=== PATIENT | female | born 1995 | race American Indian/Alaskan Native ===

== ENCOUNTER 2019-05-19 23:25 | Emergency (ER) | payer OTHER ==
[2019-05-20 00:40] LABS: Basophils % (Auto) 0.2 % (0.0-1.8); Eosinophils # (Auto) 0.1 K/mm3 (0.0-0.4); Eosinophils % (Auto) 1.4 % (0.0-4.3); Hematocrit 33.2 % (30.3-42.9); Hemoglobin 10.9 gm/dl (10.1-14.3); Lymphocytes # (Auto) 1.9 K/mm3 (1.2-5.4); Lymphocytes % (Auto) 24.7 % (13.4-35.0); Mean Corpuscular HGB Conc 33 % (30-34); Mean Corpuscular Volume 73 fl (79-97); Monocytes # (Auto) 0.7 K/mm3 (0.0-0.8); Monocytes % (Auto) 8.5 % (0.0-7.3); Platelet Count 250 K/mm3 (140-440); Red Blood Count 4.54 M/mm3 (3.65-5.03); Red Cell Distribution Width 13.7 % (13.2-15.2)
[2019-05-20 01:03] LABS: Alanine Aminotransferase 17 units/L (7-56); Albumin 4.1 g/dL (3.9-5); BUN/Creatinine Ratio 12; Blood Urea Nitrogen 7 mg/dL (7-17); Calcium 9.2 mg/dL (8.4-10.2); Hemolysis Index 0
--- NOTE | 2019-05-20 01:38 | Emergency Department Report ---
ED General Adult HPI - General Chief complaint: Abdominal Pain Stated complaint: UTI,FATIGUE,LIGHT HEADED Time Seen by Provider: 05/20/19 01:34 Source: patient Mode of arrival: Ambulatory Limitations: No Limitations - History of Present Illness Initial comments: 23-year-old female with no past medical history presents with complaint of abdominal pain. Patient says abdominal tenderness or lower abdominal region. Patient had the pain since yesterday. He states he has yet to follow up with the [facility] during this . Patient states she believes she is around 15 weeks . Patient states she is concerned she may have a UTI but denies any dysuria. Patient states she's had vaginal discharge which is white. Patient denies any vaginal bleeding. Patient states she has no history of ectopic . - Related Data Previous Rx's Medication Instructions Recorded Last Taken Type Nitrofurantoin [place]/M-Cryst 100 mg PO Q12HR 7 Days #14 capsule 05/20/19 Unknown Rx [Macrobid CAP] Allergies Allergy/AdvReac Type Severity Reaction Status Date / Time No Known Allergies Allergy Unverified 05/19/19 23:41 ED Review of Systems ROS: Stated complaint: UTI,FATIGUE,LIGHT HEADED Other details as noted in HPI Constitutional: denies: chills, fever Eyes: denies: eye pain, eye discharge, vision change ENT: denies: ear pain, throat pain Respiratory: denies: cough, shortness of breath, wheezing Cardiovascular: denies: chest pain, palpitations Endocrine: no symptoms reported Gastrointestinal: denies: abdominal pain, nausea, diarrhea Genitourinary: denies: urgency, dysuria, discharge Musculoskeletal: denies: back pain, joint swelling, arthralgia Skin: denies: rash, lesions Neurological: denies: headache, weakness, paresthesias Psychiatric: denies: anxiety, depression Hematological/Lymphatic: denies: easy bleeding, easy bruising ED Past Medical Hx - Past Medical History Previous Medical History?: No - Surgical History Past Surgical History?: No - Social History Smoking Status: Never Smoker Substance Use Type: None - Medications Home Medications: Home Medications Medication Instructions Recorded Confirmed Last Taken Type Nitrofurantoin [place]/M-Cryst 100 mg PO Q12HR 7 Days #14 capsule 05/20/19 Unknown Rx [Macrobid CAP] ED Physical Exam - General Limitations: No Limitations General appearance: alert, in no apparent distress - Head Head exam: Present: atraumatic, normocephalic - Eye Eye exam: Present: normal appearance - ENT ENT exam: Present: mucous membranes moist - Neck Neck exam: Present: normal inspection - Respiratory Respiratory exam: Present: normal lung sounds bilaterally. Absent: respiratory distress - Cardiovascular Cardiovascular Exam: Present: regular rate, normal rhythm. Absent: systolic murmur, diastolic murmur, rubs, gallop - GI/Abdominal GI/Abdominal exam: Present: soft, tenderness (mild tenderness noted in suprapubic region), normal bowel sounds. Absent: guarding, rebound - Extremities Exam Extremities exam: Present: normal inspection - Back Exam Back exam: Present: normal inspection - Neurological Exam Neurological exam: Present: alert, oriented X3 - Psychiatric Psychiatric exam: Present: normal affect, normal mood - Skin Skin exam: Present: warm, dry, intact, normal color. Absent: rash ED Course Vital Signs 05/19/19 05/19/19 05/20/19 23:29 23:43 01:40 Temperature 98.4 F 98.4 F 98.6 F Pulse Rate 76 76 72 Respiratory 18 18 18 Rate Blood Pressure 125/73 125/73 Blood Pressure 120/73 [Left] O2 Sat by Pulse 99 99 100 Oximetry 05/20/19 05/20/19 01:45 02:01 Temperature Pulse Rate Respiratory Rate Blood Pressure 120/73 107/60 Blood Pressure [Left] O2 Sat by Pulse 100 100 Oximetry ED Medical Decision Making - Lab Data Result diagrams: 05/20/19 00:09 05/20/19 00:09 - Medical Decision Making Patient has Ultrasound which shows 14 week and 5 day . Patient noted to have the presence of a UTI and will be treated with Macrobid therapy as an outpatient. Patient given Tylenol therapy while in the ER. - Differential Diagnosis ectopic ; electrolyte abnormalities, anemia; dehydration Critical care attestation.: If time is entered above; I have spent that time in minutes in the direct care of this critically ill patient, excluding procedure time. ED Disposition Clinical Impression: Abdominal pain, , Urinary tract infection Disposition: TO HOME OR SELFCARE Is pt being admited?: No Does the pt Need Aspirin: No Condition: Stable Instructions: Abdominal Pain (ED) Prescriptions: Nitrofurantoin [place]/M-Cryst [Macrobid CAP] 100 mg PO Q12HR 7 Days #14 capsule Time of Disposition: 03:12 Print Language: [place]
--- NOTE | 2019-05-20 01:40 | Ultrasound Report ---
Transabdominal OB pelvic ultrasound INDICATION / CLINICAL INFORMATION: Abdominal pain. COMPARISON: None available. FINDINGS: There is a single intrauterine with an estimated sonographic gestational age of 14 weeks 5 days and [place] of 11/13/2019. Clinical dates are 17 weeks 1 day. The heart rate is 149 bpm. presentation is transverse with the head on the maternal left. Amniotic fluid volume is normal. The placenta is located anterolaterally on the left, is grade 0 and is low-lying. No anomalies are seen. The cervix measures 7.3 cm in length and the internal os is closed. Neit her ovary is seen. IMPRESSION: 1. Single viable 14 week 5 day intrauterine . 2. Low lying placenta. Signer Name: Edward Chow MD Signed: 05/20/2019 1:36 AM Workstation Name: [id number]
[2019-05-20] MEDS ORDERED: ACETAMINOPHEN 500 MG TAB PO ONE (01:43)
[2019-05-20 02:53] LABS: Bacteria,Urine 4+ /HPF (Negative); Bilirubin,Urine NEG (Negative); Blood,Urine NEG (Negative); Color,Urine Yellow (Yellow); Mucus,Urine FEW /HPF; Protein,Urine <15 mg/dL mg/dL (Negative); Urobilinogen,Urine < 2.0 mg/dL (<2.0)
[2019-05-20 03:26] VITALS: BP 106/63
== END 2019-05-20 03:32 | disposition home or self-care (01) ==
LOC: ED 23:25
DX: O23.42 Unspecified infection of urinary tract in pregnancy, second trimester (principal); Z79.899 Other long term (current) drug therapy; Z3A.14 14 weeks gestation of pregnancy
CPT/HCPCS: 36415; 76805; 80053; 81001; 84702; 85025

== ENCOUNTER 2019-07-07 15:42 | Emergency (ER) | payer OTHER ==
--- NOTE | 2019-07-07 17:01 | Event Note ---
ED Screening Note Date of service: 07/07/19 Time: 16:40 ED Screening Note: 24 y o [id number] female at 6 months gestation presents with complains of left wrist pain and bilateral finger pain Pt states she fainted while she was at home. cant recall what happened when she came to she saw some vomit she is unsure of what happened Left hand pain and swelling This initial assessment/diagnostic orders/clinical plan/treatment(s) is/are subject to change based on patients health status, clinical progression and re- assessment by fellow clinical providers in the ED. Further treatment and workup at subsequent clinical providers discretion. Patient/guardian urged not to elope from the ED as their condition may be serious if not clinically assessed and managed. Initial orders include: US xr wrist CT head?
--- NOTE | 2019-07-07 17:29 | Event Note ---
ED Screening Note Date of service: 07/07/19 Time: 16:03 ED Screening Note: This initial assessment/diagnostic orders/clinical plan/treatment(s) is/are subject to change based on patients health status, clinical progression and re- assessment by fellow clinical providers in the ED. Further treatment and workup at subsequent clinical providers discretion. Patient/guardian urged not to elope from the ED as their condition may be serious if not clinically assessed and managed. Initial orders include:
[2019-07-07 18:45] LABS: Basophils % (Auto) 0.3 % (0.0-1.8); Hematocrit 31.4 % (30.3-42.9); Hemoglobin 10.2 gm/dl (10.1-14.3); Lymphocytes # (Auto) 0.6 K/mm3 (1.2-5.4); Lymphocytes % (Auto) 4.3 % (13.4-35.0); Mean Corpuscular HGB Conc 32 % (30-34); Mean Corpuscular Volume 73 fl (79-97); Monocytes # (Auto) 0.8 K/mm3 (0.0-0.8); Monocytes % (Auto) 5.6 % (0.0-7.3); Platelet Count 235 K/mm3 (140-440); Red Blood Count 4.29 M/mm3 (3.65-5.03); Red Cell Distribution Width 13.7 % (13.2-15.2)
[2019-07-07 19:37] LABS: Alanine Aminotransferase 12 units/L (7-56); Albumin 3.5 g/dL (3.9-5); BUN/Creatinine Ratio 11; Blood Urea Nitrogen 8 mg/dL (7-17); Calcium 9.2 mg/dL (8.4-10.2); Hemolysis Index 1
[2019-07-07 19:44] LABS: Bacteria,Urine 1+ /HPF (Negative); Bilirubin,Urine NEG (Negative); Blood,Urine SM (Negative); Color,Urine Yellow (Yellow); Mucus,Urine FEW /HPF; Urobilinogen,Urine < 2.0 mg/dL (<2.0)
[2019-07-07 19:55] LABS: Amphetamine Screen,Urine PRESUMPTIVE NEGATIVE; Benzodiazepines Screen,Urine PRESUMPTIVE NEGATIVE; Cannabinoid Screen,Urine PRESUMPTIVE NEGATIVE; Cocaine Screen,Urine PRESUMPTIVE NEGATIVE; Methadone Screen,Urine PRESUMPTIVE NEGATIVE; Opiate Screen,Urine PRESUMPTIVE NEGATIVE
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
--- NOTE | 2019-07-07 20:37 | XRay Report ---
Left hand 2 views INDICATION: Left hand pain. IMPRESSION: No fracture or subluxation of the left hand is identified. Mild edema identified along th e dorsal aspect of the left hand. Signer Name: Wes Park MD Signed: 07/07/2019 8:33 PM Workstation Name: [id number]
[2019-07-08 05:00] VITALS: BP 128/64
== END 2019-07-07 22:00 | disposition home or self-care (01) ==
LOC: ED 15:42
DX: O9A.212 Injury, poisoning and certain other consequences of external causes complicating pregnancy, second trimester (principal); S69.92XA Unspecified injury of left wrist, hand and finger(s), initial encounter; O26.892 Other specified pregnancy related conditions, second trimester; R55 Syncope and collapse; Z3A.27 27 weeks gestation of pregnancy; W19.XXXA Unspecified fall, initial encounter; Y93.89 Activity, other specified; Y92.098 Other place in other non-institutional residence as the place of occurrence of the external cause; Y99.8 Other external cause status
CPT/HCPCS: 36415; 80053; 80307; 81001; 85025

== ENCOUNTER 2021-08-26 20:18 | Emergency (ER) | payer OTHER ==
[2021-08-26 20:33] VITALS: BP 118/79
[2021-08-26] MEDS ORDERED: MORPHINE 4 MG/1 ML INJ IM ONE (21:00)
[2021-08-26] MEDS ORDERED: HYDROmorphone 1 MG/1 ML INJ IV ONE ×2 (21:30→22:45)
[2021-08-26] MEDS ORDERED: KETOROLAC 30 MG/1 ML INJ IV ONE (21:31)
--- NOTE | 2021-08-26 21:32 | XRay Report ---
Left ankle, 3 views HISTORY: Pain COMPARISON: None FINDINGS: There is a mildly displaced oblique fracture of the distal fibula at the syndesmosis. There is widening of the medial ankle gutter. Syndesmosis is intact. No additional fracture. Soft tissue s welling of the lateral ankle. IMPRESSION: Acute mildly displaced distal fibula fracture with widening of the medial ankle gutter, c onsistent with deltoid ligament injury. Signer Name: Janusz Crawley MD Signed: 08/26/2021 9:28 PM Workstation Name: [id number]
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
== END 2021-08-26 23:00 | disposition home or self-care (01) ==
LOC: ED 20:18
DX: S82.832A Other fracture of upper and lower end of left fibula, initial encounter for closed fracture (principal); J45.909 Unspecified asthma, uncomplicated; Z79.899 Other long term (current) drug therapy; X50.1XXA Overexertion from prolonged static or awkward postures, initial encounter; Y93.89 Activity, other specified; Y92.89 Other specified places as the place of occurrence of the external cause; Y99.8 Other external cause status
CPT/HCPCS: 29515; 73610; 96372; 96374; 96375; 96376; 99283; J1170; J1885; J2270

== ENCOUNTER 2021-09-12 08:57 | Outpatient (CLI) | payer OTHER ==
--- NOTE | 2021-09-12 09:57 | XRay Report ---
Left ankle, 3 views HISTORY: Fracture COMPARISON: 08/26/2021. FINDINGS: Stable alignment of mildly displaced distal fibular fracture. There has been interval heali ng. Fracture lucency remains. Ankle mortise is symmetric. No new skeletal abnormality. Signer Name: Janusz Crawley MD Signed: 09/12/2021 9:53 AM Workstation Name: [id number]
== END 2021-09-12 08:58 | disposition home or self-care (01) ==
LOC: XRAY 08:57
PROVIDERS: ATTEND Orthopaedic Surgery
DX: S82.402A Unspecified fracture of shaft of left fibula, initial encounter for closed fracture (principal); S82.90XA Unspecified fracture of unspecified lower leg, initial encounter for closed fracture; X58.XXXA Exposure to other specified factors, initial encounter; Y93.89 Activity, other specified; Y92.89 Other specified places as the place of occurrence of the external cause; Y99.8 Other external cause status

== ENCOUNTER 2021-11-13 09:31 | Outpatient (CLI) | payer OTHER ==
--- NOTE | 2021-11-13 10:46 | XRay Report ---
LEFT ANKLE 3 VIEWS INDICATION: [id number]. COMPARISON: 09/12/2021 IMPRESSION: Previously described mildly displaced oblique fracture of the distal fibula just proxima l to the ankle joint is unchanged in position and alignment since 09/12/2021. There is increased calci fied callus at the fracture site indicating interval healing although the fracture line remain eviden t. The remaining bony structures are intact. There is persistent soft tissue swelling although slight ly decreased since the previous exam. Signer Name: Angelito Holland Jr, MD Signed: 11/13/2021 10:41 AM Workstation Name: [id number]
== END 2021-11-13 09:32 | disposition home or self-care (01) ==
LOC: XRAY 09:31
PROVIDERS: ATTEND Orthopaedic Surgery
DX: S82.90XA Unspecified fracture of unspecified lower leg, initial encounter for closed fracture (principal); M79.89 Other specified soft tissue disorders; X58.XXXA Exposure to other specified factors, initial encounter; Y93.89 Activity, other specified; Y92.89 Other specified places as the place of occurrence of the external cause; Y99.8 Other external cause status